=== PATIENT | female | born 1960 | race Caucasian/White ===

== ENCOUNTER 2023-03-05 14:27 | Emergency (ER) | payer OTHER ==
[2023-03-05 14:38] VITALS: TEMP 96
[2023-03-05] MEDS ORDERED: BABY ASPIRIN 81 MG CHEW PO ONE (14:59)
[2023-03-05] MEDS ORDERED: HYDROCODONE-ACETAMIN 10-325 MG PO STA (15:00)
[2023-03-05 15:07] LABS: Absolute Neutrophil Ct (ANC) 8.02 x10^3/uL (1.4-6.9); BASOPHIL % 0.4 % (0.0-0.4); Basophil (Absolute #) 0.06 x10^3/uL (0-0.4); Eosinophil % 1.3 % (0.00-5.0); Eosinophil (Absolute #) 0.18 x10^3/uL (0-0.5); Hematocrit 46.9 % (35-47); Hemoglobin 15.6 g/dL (12.0-16.0); IMMATURE GRAN # 0.07 x10^3u/L (0.00-0.03); IMMATURE GRAN % 0.5 % (0.00-0.4); Lymphocytes % 34.2 % (24.0-44.0); Mean Cell Volume 93.1 fL (78-100); Mean Corpuscular Hgb Concent. 33.3 g/dL (32-36); Mean Platelet Volume 9.4 fL (7.5-11.0); Monocyte (Absolute #) 0.91 x10^3/uL (0.0-1.3); Monocytes % 6.5 % (0.0-12.0); Neutrophil % 57.1 % (36.0-66.0); Platelet Count 348 x10^3/uL (150-450); Red Blood Count 5.04 x10^6/uL (4.1-5.4); Red Cell Distribution Width 12.3 % (11.5-14.0)
[2023-03-05] MEDS ORDERED: BABY ASPIRIN 81 MG CHEW ONE (15:08)
[2023-03-05] MEDS ORDERED: HYDROCODONE-ACETAMIN 10-325 MG ONE (15:08)
[2023-03-05 15:33] LABS: ALBUMIN 4.6 g/dL (3.5-5.0); ANION GAP 14.4 MEQ/L (5-15); BILIRUBIN,TOTAL 0.6 mg/dL (0.2-1.3); Calcium 10.4 mg/dL (8.4-10.2); Creatinine 1 0.63 mg/dL (0.52-1.04); EST GLOMERULAR FILTRATION RATE 100.2 ML/MIN; Potassium 3.5 mmol/L (3.5-5.1)
--- NOTE | 2023-03-05 17:27 | ERPHSYRPT ---
- History of Present Illness Time Seen by Provider: 03/05/23 14:36 Historian: patient Exam Limitations: no limitations Patient Subjective Stated Complaint: "I've had chest pain for a week and it's worse. It's right in the middle of my chest and shoots straight into my back". Triage Nursing Assessment: Pt presents to ER with complaints of midsternal chest pains x 1 week that radiates straight through into her back. Pt rates pain 8/10 scale. States pain is a constant ache. Complains of intermittent nausea. Denies vomiting or diarrhea. Denies shortness of breath, lung sounds are clear and equal throughout. Skin is pink, warm, and dry. Able to speak in full sentences. Pt is alert and oriented x 3. Physician History: 62 years old female with a history of diabetes mellitus, tobacco abuse presented in the ER with 1 week history of chest pain. Patient reports she has a history of chronic upper mid back pain and was evaluated outpatient a week ago at urgent care for same symptoms and then at primary care with a EKG showing some changes with negative blood work including troponins 3 days ago. Patient reports some radiation of pain from back to the anterior chest now without any difficulty breathing or palpitations. Patient reports constant pain, relief with lying flat and more with sitting up and moving in certain directions. Denies any history of coronary artery disease. Patient decided to be evaluated in the ER as her pain was getting worse. She has not taken anything for pain at home. Allergies/Adverse Reactions: acetaminophen [From Darvocet-N] Allergy (Intermediate, Verified 03/05/23 14:38) sick propoxyphene napsylate [From Darvocet-N] Allergy (Intermediate, Verified 03/05/23 14:38) sick morphine Allergy (Mild, Verified 03/05/23 14:38) oxycodone HCl [From Percocet] Allergy (Verified 03/05/23 14:38) Home Medications: Aspirin [[place]] 81 mg PO DAILY 03/05/23 [History] Clopidogrel Bisulfate [Plavix] 75 mg PO DAILY 03/05/23 [History] Metformin HCl 500 mg [Glucophage 500 MG] 500 mg PO DAILY 03/05/23 [History] Semaglutide [Ozempic] 0.25 mg SQ WEEKLY 11/24/23 [History] Hx Tetanus, Diphtheria Vaccination/Date Given: No Hx Influenza Vaccination/Date Given: No Hx Pneumococcal Vaccination/Date Given: No Immunizations Up to Date: No Travel Risk - International Travel Have you traveled outside of the country in past 3 weeks: No - Coronavirus Screening Are you exhibiting any of the following symptoms?: No Close contact with a COVID-19 positive Pt in past 14-21 Days: No - Vaccine Status Have you recieved a Covid-19 vaccination: Yes 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[employer] - Vaccination Dates Date of 2cond Vaccination (if applicable): 2020 - Review of Systems Constitutional: No Symptoms Eyes: No Symptoms Ears, Nose, & Throat: No Symptoms Respiratory: No Symptoms Cardiac: Chest Pain Abdominal/Gastrointestinal: Nausea Genitourinary Symptoms: No Symptoms Musculoskeletal: Back Pain Skin: No Symptoms Neurological: No Symptoms Psychological: No Symptoms Hematologic/Lymphatic: No Symptoms Immunological/Allergic: No Symptoms - Past Medical History Pertinent Past Medical History: Yes Neurological History: No Pertinent History ENT History: No Pertinent History Cardiac History: High Cholesterol Respiratory History: Asthma, Bronchitis Endocrine Medical History: No Pertinent History Musculoskeletal History: Arthritis GI Medical History: Hemorrhoids History: No Pertinent History Psycho-Social History: Anxiety Female Reproductive Disorders: No Pertinent History - Past Surgical History Past Surgical History: Yes Neuro Surgical History: No Pertinent History Cardiac: No Pertinent History Respiratory: No Pertinent History Gastrointestinal: No Pertinent History Genitourinary: No Pertinent History Musculoskeletal: Orthopedic Surgery Female Surgical History: No Pertinent History Other Surgical History: t&a,rt knee joint replaced - Social History Smoking Status: Current every day smoker How long have you smoked: 30 Exposure to second hand smoke: No Drug Use: none Patient Lives Alone: No - Nursing Vital Signs Nursing Vital Signs: Initial Vital Signs Temperature 96 F 03/05/23 14:28 Pulse Rate 110 H 03/05/23 14:28 Respiratory Rate 18 03/05/23 14:28 Blood Pressure 138/102 03/05/23 14:28 O2 Sat by Pulse Oximetry 98 03/05/23 14:28 Pain Scale Pain Intensity 2 - Physical Exam General Appearance: no apparent distress, alert, anxiety Eye Exam: PERRL/EOMI Ears, Nose, Throat Exam: normal ENT inspection, TMs normal, pharynx normal, moist mucous membranes Neck Exam: normal inspection, non-tender, supple, full range of motion Respiratory Exam: normal breath sounds, lungs clear Cardiovascular Exam: normal heart sounds, tachycardia Gastrointestinal/Abdomen Exam: soft, normal bowel sounds, No tenderness Back Exam: normal inspection, normal range of motion, point tenderness (Upper back thoracic paraspinal area tenderness) Extremity Exam: normal inspection, normal range of motion, pelvis stable Neurologic Exam: alert, oriented x 3, cooperative, 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 as tested Skin Exam: normal color SpO2 Interpretation: normal SpO2: 96 O2 Delivery: Room Air Ordered Tests: Active Orders 24 hr Category Date Time Status Oven Technician STAT Care 03/05/23 14:59 Active EKG-ER Only STAT Care 03/05/23 14:59 Active IV Insertion STAT Care 03/05/23 14:59 Active CHEST WITH CONTRAST [CT] Stat Exams 03/05/23 14:59 Taken CBC W DIFF Stat Lab 03/05/23 14:59 Completed CK-Creatinine Phosphokinase Stat Lab 03/05/23 15:00 Completed CMP Stat Lab 03/05/23 15:00 Completed NT PRO BNPII Stat Lab 03/05/23 15:00 Completed TROPONIN Q4H Lab 03/05/23 15:00 Completed TROPONIN Q4H Lab 03/05/23 19:00 Ordered TROPONIN Q4H Lab 03/05/23 23:00 Ordered Medication Summary Discontinued Medications Generic Name Dose Route Start Last Admin Trade Name Ana Rosa PRMikel Reason Stop Dose Admin Hydrocodone Bitart/Acetaminophen 1 tablet 03/05/23 15:00 03/05/23 15:12 Hydrocodone/Acetamin 10-325 Mg Tablet PO 03/05/23 15:01 1 tablet ONCE STA Administration Hydrocodone Bitart/Acetaminophen Confirm 03/05/23 15:08 Hydrocodone/Acetamin 10-325 Mg Tablet Administered 03/05/23 15:09 Dose 1 tablet .ROUTE .STK-MED ONE Aspirin 324 mg 03/05/23 14:59 03/05/23 15:11 Aspirin 81 Mg Tab.Chew PO 03/05/23 15:00 243 mg STAT ONE Administration Aspirin Confirm 03/05/23 15:08 Aspirin 81 Mg Tab.Chew Administered 03/05/23 15:09 Dose 243 mg .ROUTE .STK-MED ONE Lab/Rad Data: Laboratory Result Diagrams 03/05/23 14:59 03/05/23 15:00 Laboratory Results 11/24/23 11/24/23 11/24/23 Range/Units 15:00 15:00 14:59 WBC 14.0 H (4.0-10.5) x10^3/uL RBC 5.04 (4.1-5.4) x10^6/uL Hgb 15.6 (12.0-16.0) g/dL Hct 46.9 (35-47) % MCV 93.1 (78-100) fL MCH 31.0 (26-32) pg MCHC 33.3 (32-36) g/dL RDW 12.3 (11.5-14.0) % Plt Count 348 (150-450) x10^3/uL MPV 9.4 (7.5-11.0) fL Gran % 57.1 (36.0-66.0) % Immature Gran % (Auto) 0.5 H (0.00-0.4) % Nucleat RBC Rel Count 0.0 (0.00-0.1) % Eos # (Auto) 0.18 (0-0.5) x10^3/uL Immature Gran # (Auto) 0.07 H (0.00-0.03) x10^3u/L Absolute Lymphs (auto) 4.80 H (1.0-4.6) x10^3/uL Absolute Monos (auto) 0.91 (0.0-1.3) x10^3/uL Absolute Nucleated RBC 0.00 (0.00-0.01) x10^3u/L Lymphocytes % 34.2 (24.0-44.0) % Monocytes % 6.5 (0.0-12.0) % Eosinophils % 1.3 (0.00-5.0) % Basophils % 0.4 (0.0-0.4) % Absolute Granulocytes 8.02 H (1.4-6.9) x10^3/uL Basophils # 0.06 (0-0.4) x10^3/uL Sodium 141 (137-145) mmol/L Potassium 3.5 (3.5-5.1) mmol/L Chloride 105 (98-107) mmol/L Carbon Dioxide 26 (22-30) mmol/L Anion Gap 14.4 (5-15) MEQ/L BUN 14 (7-17) mg/dL Creatinine 0.63 (0.52-1.04) mg/dL Estimated GFR 100.2 ML/MIN Glucose 193 H (74-106) mg/dL Calcium 10.4 H (8.4-10.2) mg/dL Total Bilirubin 0.60 (0.2-1.3) mg/dL AST 18 (14-36) U/L ALT 17 (0-35) U/L Alkaline Phosphatase 104 (38-126) U/L Creatine Kinase 30 (30-135) U/L Troponin I < 0.012 (0.000-0.034) ng/mL NT-Pro-B Natriuret Pep 153 (<300) pg/mL Serum Total Protein 8.0 (6.3-8.2) g/dL Albumin 4.6 (3.5-5.0) g/dL - Progress Progress: improved Air Movement: good Progress Note: 03/05/23 18:28 62 years old female with a history of upper back pain is evaluated in the ER with chief complaint of chest pain with some radiation of back pain to the anterior chest without difficulty breathing. Patient was mildly tachycardic on presentation. EKG did not show any acute ST elevations. She is given aspirin and [place] for symptomatic relief, on reevaluation her pain is completely resolved. She has normal white count, fairly unremarkable chemistries except for elevated glucose of 190s. I have obtained CTA chest which is negative for PE or any other acute findings per preliminary report, full read is pending. Patient pain is reproducible with movements in a certain direction and is better with lying flat. I think patient's pain is more of a back pain with some radiation to the chest wall. With her troponins negative x 2 today and also -3 days ago and with constant pain, less likely cardiac in origin. Her heart rate improved and 80s. Blood pressure remained stable. I have discussed with patient about observation in the hospital versus going home and she wants to go home and I think is reasonable as she is scheduled for outpatient stress test in 3 days and being holidays we want to be able to get stress test done even if we admit this patient. Patient is requesting pain medication and I we will give her few tramadol's to take only as needed. Discussed signs symptoms of worsening needing return to ER which she seems understanding. Also give referral for cardiology. Blood Culture(s) Obtained: No Antibiotics given: No Counseled pt/family regarding: lab results, diagnosis, need for follow-up, rad results, smoking cessation Medical Desision Making - Diagnostic Testing Diagnostic test were ordered, analyzed, and reviewed by me: Yes Radiological Interpretation: Reviewed by me, Teleradiologist Report - Risk of complications The pt has a mod risk of morbidity or mortality based on: Need for prescription drug management - Departure Departure Disposition: Home Clinical Impression: Atypical chest pain, Upper back strain Condition: Stable Critical Care Time: No Referrals: SHAN SCHMID NP [Primary Care Provider] - Follow Up with PCP/3 days RUSLAN CHARLES [CONSULTING PHYSICIAN] - Follow up/PCP as directed (Call for appointment for reevaluation in 1 to 2 days.) Instructions: Angina (DC) Additional Instructions: Take Tylenol/tramadol as needed for pain. Follow-up with primary care and cardiology for reevaluation. Keep appointment for stress test in 3 days. Return to ER for intractable pain, difficulty breathing, palpitations etc. Prescriptions: Tramadol HCl 50 mg [Ultram 50 mg] 50 mg PO Q8HPRN PRN 3 Days #9 tablet PRN Reason: Pain
[2023-03-05 18:09] VITALS: BP 143/95; PULSE 90; RESP 17; O2SAT 95
--- NOTE | 2023-03-05 20:25 | XRAY ---
Indication: Chest pain 1 week. Pulmonary embolus. Multiple contiguous axial images obtained through the chest using 80 cc of Isovue-370 contrast and PE protocol. Comparison: None Good opacification of the pulmonary arteries to include the lobar and segmental branches. No pulmonary embolus. Heart not enlarged. Aorta is normal in course and caliber. No pathologic mediastinal/hilar lymphadenopathy. Lungs demonstrates minimal bilateral dependent atelectasis. No suspicious pulmonary mass/nodule, infiltrate, or effusion. Bony thorax intact with mild/moderate degenerative changes throughout the spine. Limited upper abdomen including adrenal glands are unremarkable. Impression: 1. Negative pulmonary embolus. No acute cardiopulmonary abnormalities. 2. Incidental multilevel degenerative spondylosis.
== END 2023-03-05 18:24 | disposition home or self-care (01) ==
LOC: ED 14:27
DX: R07.89 Other chest pain (principal); S29.012A Strain of muscle and tendon of back wall of thorax, initial encounter; E11.9 Type 2 diabetes mellitus without complications; E78.5 Hyperlipidemia, unspecified; Z79.891 Long term (current) use of opiate analgesic; Z79.02 Long term (current) use of antithrombotics/antiplatelets; Z79.84 Long term (current) use of oral hypoglycemic drugs; Z79.85 Long-term (current) use of injectable non-insulin antidiabetic drugs; Z72.0 Tobacco use
CPT/HCPCS: 36000; 36415; 71260; 80053; 82550; 83880; 84484; 85025; 93005; 93041; 99284; A9270-GY

== ENCOUNTER 2023-03-27 13:14 | Observation (INO) | payer OTHER ==
[2023-03-27 13:34] LABS: Absolute Neutrophil Ct (ANC) 7.16 x10^3/uL (1.4-6.9); BASOPHIL % 0.4 % (0.0-0.4); Basophil (Absolute #) 0.05 x10^3/uL (0-0.4); Eosinophil % 1.5 % (0.00-5.0); Eosinophil (Absolute #) 0.19 x10^3/uL (0-0.5); Hemoglobin 14.1 g/dL (12.0-16.0); IMMATURE GRAN # 0.06 x10^3u/L (0.00-0.03); IMMATURE GRAN % 0.5 % (0.00-0.4); Lymphocyte (Absolute #) 4.29 x10^3/uL (1.0-4.6); Lymphocytes % 34.4 % (24.0-44.0); Mean Cell Volume 93.3 fL (78-100); Mean Corpuscular Hemoglobin 30.6 pg (26-32); Mean Corpuscular Hgb Concent. 32.8 g/dL (32-36); Mean Platelet Volume 9.2 fL (7.5-11.0); Monocyte (Absolute #) 0.72 x10^3/uL (0.0-1.3); Monocytes % 5.8 % (0.0-12.0); Neutrophil % 57.4 % (36.0-66.0); Platelet Count 314 x10^3/uL (150-450); Red Blood Count 4.61 x10^6/uL (4.1-5.4); Red Cell Distribution Width 12.3 % (11.5-14.0); White Blood Count 12.5 x10^3/uL (4.0-10.5)
[2023-03-27 13:56] LABS: ALBUMIN 4.2 g/dL (3.5-5.0); ANION GAP 11.9 MEQ/L (5-15); BILIRUBIN,TOTAL 0.5 mg/dL (0.2-1.3); Calcium 9.9 mg/dL (8.4-10.2); Creatinine 1 0.5 mg/dL (0.52-1.04); Potassium 3.8 mmol/L (3.5-5.1); Total Protein 7.4 g/dL (6.3-8.2)
--- NOTE | 2023-03-27 14:37 | ERPHSYRPT ---
- History of Present Illness Time Seen by Provider: 03/27/23 13:25 Historian: patient Exam Limitations: no limitations Patient Subjective Stated Complaint: Chest pain Triage Nursing Assessment: Patient ambulated back to ED and transferred self to bed. Patient A+O X 3. Patient's skin pink, warm and dry. Patient states she was sitting up in her recliner about 2.5 hours prior to coming into ED and started having chest pain that was dull in her sternal area. Patient took Nitro X 3 prior to coming to ED. Patient currently denies pain or discomfort. Physician History: 62 years old female with history of tobacco abuse, COPD, hypertension, hyperlipidemia, diabetes mellitus presented in the ER with chief complaint of substernal chest pain started almost 2-1/2 hours ago while she was resting on a recliner, moderate to severe sharp nonradiating with associated some dizziness or lightheadedness, checked her blood pressure which was in 200s. Patient has taken 3 nitros before she started to feel relieved and currently has no chest pain. She has recently seen in the ER for similar symptoms, did follow-up with cardiology and had stress test done which is negative per patient and is scheduled for CTA coronaries next week. Denies any increased difficulty breathing than her baseline. No fever or chills reported. Aspirin Treatment Today: 81 mg x 1 Allergies/Adverse Reactions: propoxyphene napsylate [From Darvocet-N] Allergy (Intermediate, Verified 03/27/23 13:17) sick morphine Allergy (Mild, Verified 03/27/23 13:17) oxycodone HCl [From Percocet] Allergy (Verified 03/27/23 13:17) Home Medications: Aspirin [Vazalore] 81 mg PO DAILY 03/05/23 [History] Clopidogrel Bisulfate [Plavix] 75 mg PO DAILY 03/05/23 [History] Metformin HCl 500 mg [Glucophage 500 MG] 500 mg PO DAILY 03/05/23 [History] Semaglutide [Ozempic] 0.25 mg SQ WEEKLY 03/05/23 [History] Evolocumab [Repatha Syringe] 1 ml SQ UD 03/27/23 [History] Metoprolol Succinate 25 mg Xl* [Toprol-Xl 25MG Tablets] 25 mg PO DAILY 03/27/23 [History] Nitroglycerin 0.4 mg (Ed) [Nitrostat 0.4 MG (ED)] 0.4 mg PO UD 03/27/23 [History] Hx Tetanus, Diphtheria Vaccination/Date Given: No Hx Influenza Vaccination/Date Given: No Hx Pneumococcal Vaccination/Date Given: No Immunizations Up to Date: Yes Travel Risk - International Travel Have you traveled outside of the country in past 3 weeks: No - Coronavirus Screening Are you exhibiting any of the following symptoms?: No Close contact with a COVID-19 positive Pt in past 14-21 Days: No - Vaccine Status Have you recieved a Covid-19 vaccination: Yes [facility] [employer]: Moderna - Vaccination Dates Date of 2cond Vaccination (if applicable): 2020 - Review of Systems Constitutional: No Symptoms Eyes: No Symptoms Ears, Nose, & Throat: No Symptoms Respiratory: No Symptoms Cardiac: Chest Pain Abdominal/Gastrointestinal: No Symptoms Genitourinary Symptoms: No Symptoms Musculoskeletal: No Symptoms Skin: No Symptoms Neurological: Dizziness Endocrine: No Symptoms Hematologic/Lymphatic: No Symptoms - Past Medical History Pertinent Past Medical History: Yes Neurological History: No Pertinent History ENT History: No Pertinent History Cardiac History: High Cholesterol Respiratory History: Asthma, Bronchitis Endocrine Medical History: No Pertinent History Musculoskeletal History: Arthritis GI Medical History: Hemorrhoids History: No Pertinent History Psycho-Social History: Anxiety Female Reproductive Disorders: No Pertinent History - Past Surgical History Past Surgical History: Yes Neuro Surgical History: No Pertinent History Cardiac: No Pertinent History Respiratory: No Pertinent History Gastrointestinal: No Pertinent History Genitourinary: No Pertinent History Musculoskeletal: Orthopedic Surgery Female Surgical History: No Pertinent History Other Surgical History: t&a,rt knee joint replaced - Social History Smoking Status: Current every day smoker How long have you smoked: 30 Exposure to second hand smoke: No Drug Use: none Patient Lives Alone: No - Nursing Vital Signs Nursing Vital Signs: Initial Vital Signs Temperature 97.5 F 03/27/23 13:18 Pulse Rate 88 03/27/23 13:18 Respiratory Rate 23 03/27/23 13:18 Blood Pressure 155/76 03/27/23 13:18 O2 Sat by Pulse Oximetry 98 03/27/23 13:18 Pain Scale Pain Intensity 0 - Physical Exam General Appearance: no apparent distress, alert Eye Exam: PERRL/EOMI Ears, Nose, Throat Exam: normal ENT inspection Neck Exam: normal inspection, non-tender, supple, full range of motion Respiratory Exam: normal breath sounds, lungs clear Cardiovascular Exam: regular rate/rhythm, normal heart sounds Gastrointestinal/Abdomen Exam: soft, No tenderness Back Exam: normal inspection Extremity Exam: normal inspection, normal range of motion Neurologic Exam: alert, oriented x 3, cooperative, distribution lineman II-XII nml as tested, normal mood/affect, nml cerebellar function, nml station & gait, sensation nml, No motor deficits Skin Exam: normal color SpO2 Interpretation: normal SpO2: 99 O2 Delivery: Room Air - Course EKG Interpreted by Me: RATE (91), Sinus Rhythm, NORMAL AXIS, NORMAL INTERVALS, Other (Nonspecific T wave changes) Ordered Tests: Active Orders 24 hr Category Date Time Status Bedrest ROUTINE Activity 03/27/23 17:57 Active Up With Assistance ROUTINE Activity 03/27/23 17:57 Active Call Admit Doctor for Orders ON ADMISSION Care 03/27/23 17:57 Active Maintenance Mechanic Telephone STAT Care 03/27/23 13:25 Completed Code Status Order ROUTINE Care 03/27/23 17:57 Active EKG-ER Only STAT Care 03/27/23 13:25 Completed Fall Protocol ROUTINE Care 03/27/23 17:57 Active IV Insertion STAT Care 03/27/23 13:25 Completed POCT Glucose Check ACHS Care 03/27/23 17:[address] in Observation ROUTINE Care 03/27/23 17:57 Active Consistent Carbohydrate Diet 1800 Calorie Diet 03/27/23 Dinner Active CHEST 1 VIEW (PORTABLE) Stat Exams 03/27/23 13:25 Completed CBC W DIFF Stat Lab 03/27/23 13:30 Completed CK-Creatinine Phosphokinase Stat Lab 03/27/23 13:30 Completed CMP Stat Lab 03/27/23 13:30 Completed NT PRO BNPII Stat Lab 03/27/23 13:30 Completed POCT GLUCOSE Stat Lab 03/27/23 17:02 Completed TROPONIN Q4H Lab 03/27/23 13:30 Completed TROPONIN Q4H Lab 03/27/23 16:53 Completed TROPONIN Q4H Lab 03/27/23 21:30 Ordered Pulse Oximetry CONTINUOUS RT 03/27/23 17:57 Completed Respiratory Therapy Consult ONCE RT 03/27/23 17:57 Active Transfer Order Routine Transfer 03/27/23 Completed Medication Summary Generic Name Dose Route Start Last Admin Trade Name Freq PRN Reason Stop Dose Admin Acetaminophen 325 mg 03/27/23 17:52 Acetaminophen 325 Mg Tablet PO 04/26/23 17:51 Q4H PRN PRN PAIN, FEVER, HEADACHE Hydrocodone Bitart/Acetaminophen 1 tab 03/27/23 19:40 03/27/23 19:43 Hydrocodone/Apap 5/325 1 Tab Tablet PO 03/27/23 19:41 1 tab ONCE ONE Administration Clopidogrel Bisulfate 75 mg 03/28/23 10:00 Clopidogrel Bisulfate 75 Mg Tablet PO 04/27/23 09:59 DAILY [facility] Enoxaparin Sodium 40 mg 03/28/23 10:00 Enoxaparin Sodium 40 Mg/0.4 Ml Syringe SQ 04/27/23 09:59 DAILY [facility] [place] Insulin Human Lispro 0 unit 03/27/23 17:52 Insulin Lispro 1 Unit SQ 04/26/23 17:51 UD PRN HYPERGLYCEMIA Metoprolol Tartrate 50 mg 03/27/23 22:00 Metoprolol Tartrate 50 Mg Tablet PO 04/26/23 21:59 BID CORI Nitroglycerin 0.4 mg 03/27/23 18:45 Nitroglycerin 0.4 Mg (Ed) 0.4 Mg Tab.Subl SL 04/26/23 18:44 UD CORI Non-Formulary Medication 1 ml 03/27/23 18:45 Evolocumab [Repatha Syringe] SQ 04/26/23 18:44 UD CORI Non-Formulary Medication 81 mg 03/28/23 10:00 Aspirin [Vazalore] PO 04/27/23 09:59 DAILY [facility] [place] Ondansetron HCl 4 mg 03/27/23 17:52 Ondansetron Hcl 4 Mg/2 Ml Vial IV 04/26/23 17:51 Q6H PRN PRN NAUSEA/VOMITING Pantoprazole Sodium 40 mg 03/27/23 18:45 Pantoprazole 40 Mg Vial IV 04/26/23 18:44 Q24H CORI Tramadol HCl 50 mg 03/27/23 18:35 Tramadol Hcl 50 Mg Tablet PO 04/26/23 18:34 Q8HPRN PRN PAIN Discontinued Medications Generic Name Dose Route Start Last Admin Trade Name Howieq PRN Reason Stop Dose Admin Metoprolol Succinate 25 mg 03/28/23 10:00 Metoprolol Succinate 25 Mg Xl Tab PO 04/27/23 09:59 DAILY [facility] [place] Lab/Rad Data: Laboratory Result Diagrams 03/27/23 13:30 03/27/23 13:30 Laboratory Results 03/27/23 03/27/23 03/27/23 Range/Units 17:02 16:53 16:30 WBC (4.0-10.5) x10^3/uL RBC (4.1-5.4) x10^6/uL Hgb (12.0-16.0) g/dL Hct (35-47) % MCV (78-100) fL MCH (26-32) pg MCHC (32-36) g/dL RDW (11.5-14.0) % Plt Count (150-450) x10^3/uL MPV (7.5-11.0) fL Gran % (36.0-66.0) % Immature Gran % (Auto) (0.00-0.4) % Nucleat RBC Rel Count (0.00-0.1) % Eos # (Auto) (0-0.5) x10^3/uL Immature Gran # (Auto) (0.00-0.03) x10^3u/L Absolute Lymphs (auto) (1.0-4.6) x10^3/uL Absolute Monos (auto) (0.0-1.3) x10^3/uL Absolute Nucleated RBC (0.00-0.01) x10^3u/L Lymphocytes % (24.0-44.0) % Monocytes % (0.0-12.0) % Eosinophils % (0.00-5.0) % Basophils % (0.0-0.4) % Absolute Granulocytes (1.4-6.9) x10^3/uL Basophils # (0-0.4) x10^3/uL Sodium (137-145) mmol/L Potassium (3.5-5.1) mmol/L Chloride (98-107) mmol/L Carbon Dioxide (22-30) mmol/L Anion Gap (5-15) MEQ/L BUN (7-17) mg/dL Creatinine (0.52-1.04) mg/dL Estimated GFR ML/MIN Glucose (74-106) mg/dL POC Glucometer 91 (74 to 106) mg/dL Calcium (8.4-10.2) mg/dL Total Bilirubin (0.2-1.3) mg/dL AST (14-36) U/L ALT (0-35) U/L Alkaline Phosphatase (38-126) U/L Creatine Kinase (30-135) U/L Troponin I < 0.012 (0.000-0.034) ng/mL NT-Pro-B Natriuret Pep (<300) pg/mL Serum Total Protein (6.3-8.2) g/dL Albumin (3.5-5.0) g/dL TSH 3rd Generation 2.260 (0.47-4.68) mIU/L 03/27/23 03/27/23 03/27/23 Range/Units 13:30 13:30 13:30 WBC 12.5 H (4.0-10.5) x10^3/uL RBC 4.61 (4.1-5.4) x10^6/uL Hgb 14.1 (12.0-16.0) g/dL Hct 43.0 (35-47) % MCV 93.3 (78-100) fL MCH 30.6 (26-32) pg MCHC 32.8 (32-36) g/dL RDW 12.3 (11.5-14.0) % Plt Count 314 (150-450) x10^3/uL MPV 9.2 (7.5-11.0) fL Gran % 57.4 (36.0-66.0) % Immature Gran % (Auto) 0.5 H (0.00-0.4) % Nucleat RBC Rel Count 0.0 (0.00-0.1) % Eos # (Auto) 0.19 (0-0.5) x10^3/uL Immature Gran # (Auto) 0.06 H (0.00-0.03) x10^3u/L Absolute Lymphs (auto) 4.29 (1.0-4.6) x10^3/uL Absolute Monos (auto) 0.72 (0.0-1.3) x10^3/uL Absolute Nucleated RBC 0.00 (0.00-0.01) x10^3u/L Lymphocytes % 34.4 (24.0-44.0) % Monocytes % 5.8 (0.0-12.0) % Eosinophils % 1.5 (0.00-5.0) % Basophils % 0.4 (0.0-0.4) % Absolute Granulocytes 7.16 H (1.4-6.9) x10^3/uL Basophils # 0.05 (0-0.4) x10^3/uL Sodium 142 (137-145) mmol/L Potassium 3.8 (3.5-5.1) mmol/L Chloride 106 (98-107) mmol/L Carbon Dioxide 28 (22-30) mmol/L Anion Gap 11.9 (5-15) MEQ/L BUN 12 (7-17) mg/dL Creatinine 0.50 L (0.52-1.04) mg/dL Estimated GFR 106.0 ML/MIN Glucose 215 H (74-106) mg/dL POC Glucometer (74 to 106) mg/dL Calcium 9.9 (8.4-10.2) mg/dL Total Bilirubin 0.50 (0.2-1.3) mg/dL AST 18 (14-36) U/L ALT 14 (0-35) U/L Alkaline Phosphatase 97 (38-126) U/L Creatine Kinase 29 L (30-135) U/L Troponin I < 0.012 (0.000-0.034) ng/mL NT-Pro-B Natriuret Pep 104 (<300) pg/mL Serum Total Protein 7.4 (6.3-8.2) g/dL Albumin 4.2 (3.5-5.0) g/dL TSH 3rd Generation (0.47-4.68) mIU/L - Progress Progress: improved, re-examined Air Movement: good Progress Note: 03/27/23 14:37 62 years old with history of tobacco abuse, diabetes mellitus, hypertension is evaluated in the ER for chest pain started today with elevated blood pressure and improvement in chest pain with 3 nitros. Patient is chest pain-free while in the ER. EKG did not show any acute ischemic changes. Negative initial troponin. Chest x-ray negative for any acute cardiopulmonary findings reviewed by me, official report is pending. Patient has multiple risk factors for CAD, discussed with hospitalist, reviewed history, workup and agreed with observation admission. I have discussed the results of workup with patient and plan of admission which she understands and agrees. Blood Culture(s) Obtained: No Antibiotics given: No Discussed with Dr.: Other (Dr. Franks) Will see patient in: hospital (observation) Counseled pt/family regarding: lab results, diagnosis, rad results, smoking cessation Medical Desision Making - Independent Historian Additional History obtained from: Spouse - Discussion of managment Care discussed with:: hospitalist Reviewed:: Test results Agreed on:: Treatment plan Will see patient: in hospital - Diagnostic Testing Diagnostic test were ordered, analyzed, and reviewed by me: Yes Radiological Interpretation: Interpreted by me, Reviewed by me - Risk of complications The pt has a high risk of morbidity or mortality based on: Decision regarding hospitilization or escalation of hosp level of care - Departure Departure Disposition: Observation Clinical Impression: Chest pain, rule out acute myocardial infarction Condition: Stable Critical Care Time: No
--- NOTE | 2023-03-27 17:48 | PCM.HP ---
History of Present Illness - Chief Complaint Chief Complaint: Chest Pain Date: 03/27/23 History of Present Illness: is a 62 year old with a pmhx of COPD, HTN, HLD, DM, s/p stent to the RLE, and current every day smoker who presented to ED with complaints of substernal chest pain with assoicated dizziness that she reports may have radiated to her left neck and back but she is unsure. Onset of her chest pain was 11 a.m. this morning. She describes the pain as mild, constant, and dull in characteristic rating it 4/10 on a numerical pain scale. Aggravating factors include movement. She did get relief from Nitro, but only after taking it three times. She denies CP since arriving to the hospital. She follows with Dr. Aburto (cardiolgy) and had a recent stress test which she reports was negative. She is due to follow this Wednesday with Dr. Aburto and a coronary calcium scan later next week. She also reports a cough with clear production and nasal congestion for the past week. In ED vitals unremarkable. CXR negative for acute cardiopulmonary process. EKG with NS, no ST elevations/deviations. Lab findings remarkable for leukocytosis with WBC at 12.5. Troponins neg x2. BNP WNL. - Review of Systems Constitutional: No Symptoms Eyes: No Symptoms Ears, Nose, & Throat: Nose Congestion, Sinus Drainage Respiratory: Cough, Short Of Breath Cardiac: No Symptoms Abdominal/Gastrointestinal: No Symptoms Genitourinary Symptoms: No Symptoms Musculoskeletal: Back Pain Skin: No Symptoms Neurological: No Symptoms Psychological: No Symptoms Endocrine: No Symptoms Medications & Allergies Home Medications: Home Medication List Aspirin [Vazalore] 81 mg PO DAILY 03/05/23 [History Confirmed 03/27/23] Clopidogrel Bisulfate [Plavix] 75 mg PO DAILY 03/05/23 [History Confirmed 03/27/23] Metformin HCl 500 mg [Glucophage 500 MG] 500 mg PO DAILY 03/05/23 [History Confirmed 03/27/23] Semaglutide [Ozempic] 0.25 mg SQ WEEKLY 03/05/23 [History Confirmed 03/27/23] Tramadol HCl 50 mg [Ultram 50 mg] 50 mg PO Q8HPRN PRN 3 Days #9 tablet 03/05/23 [Rx Confirmed 03/27/23] Evolocumab [Repatha Syringe] 1 ml SQ UD 03/27/23 [History Confirmed 03/27/23] Metoprolol Succinate 25 mg Xl* [Toprol-Xl 25MG Tablets] 25 mg PO DAILY 03/27/23 [History Confirmed 03/27/23] Nitroglycerin 0.4 mg (Ed) [Nitrostat 0.4 MG (ED)] 0.4 mg PO UD 03/27/23 [History Confirmed 03/27/23] Allergies/Adverse Reactions: Allergies Allergy/AdvReac Type Severity Reaction Status Date / Time propoxyphene napsylate Allergy Intermediate sick Verified 03/27/23 13:17 [From Darvocet-N] morphine Allergy Mild Verified 03/27/23 13:17 oxycodone HCl [From Percocet] Allergy Verified 03/27/23 13:17 - Past Medical History Past Medical History: Yes Neurological History: No Pertinent History ENT History: No Pertinent History Cardiac History: High Cholesterol Respiratory History: Asthma, Bronchitis Endocrine Medical History: No Pertinent History Musculoskelatal History: Arthritis GI Medical History: Hemorrhoids History: No Pertinent History Pyscho-Social History: Anxiety Reproductive Disorders: No Pertinent History - Past Surgical History Past Surgical History: Yes Neuro Surgical History: No Pertinent History Cardiac History: No Pertinent History Respiratory Surgery: No Pertinent History GI Surgical History: No Pertinent History Genitourinary Surgical Hx: No Pertinent History Musculskeletal Surgical Hx: Orthopedic Surgery Female Surgical History: No Pertinent History Other Surgical History: t&a,rt knee joint replaced - Social History Smoking Status: Current every day smoker How long have you smoked: 30 Exposure to second hand smoke: No Alcohol: None Drug Use: none - Physical Exam Vital Signs: Vital Signs - 24 hr Temp Pulse Resp BP BP Pulse Ox 03/27/23 14:39 99 03/27/23 14:00 84 20 157/91 99 03/27/23 13:18 97.5 F 88 23 155/76 98 General Appearance: no apparent distress Neurologic Exam: alert, oriented x 3, cooperative Eye Exam: PERRL/EOMI Neck Exam: normal inspection Respiratory Exam: normal breath sounds, lungs clear Cardiovascular Exam: regular rate/rhythm, normal heart sounds Pelvic Exam: not done Rectal Exam: deferred Back Exam: normal inspection Extremity Exam: normal inspection Skin Exam: normal color Results - Labs Lab/Micro Results: Lab Results-Last 24 Hours 03/27/23 03/27/23 03/27/23 Range/Units 13:30 13:30 13:30 WBC 12.5 H (4.0-10.5) x10^3/uL RBC 4.61 (4.1-5.4) x10^6/uL Hgb 14.1 (12.0-16.0) g/dL Hct 43.0 (35-47) % MCV 93.3 (78-100) fL MCH 30.6 (26-32) pg MCHC 32.8 (32-36) g/dL RDW 12.3 (11.5-14.0) % Plt Count 314 (150-450) x10^3/uL MPV 9.2 (7.5-11.0) fL Gran % 57.4 (36.0-66.0) % Immature Gran % (Auto) 0.5 H (0.00-0.4) % Nucleat RBC Rel Count 0.0 (0.00-0.1) % Eos # (Auto) 0.19 (0-0.5) x10^3/uL Immature Gran # (Auto) 0.06 H (0.00-0.03) x10^3u/L Absolute Lymphs (auto) 4.29 (1.0-4.6) x10^3/uL Absolute Monos (auto) 0.72 (0.0-1.3) x10^3/uL Absolute Nucleated RBC 0.00 (0.00-0.01) x10^3u/L Lymphocytes % 34.4 (24.0-44.0) % Monocytes % 5.8 (0.0-12.0) % Eosinophils % 1.5 (0.00-5.0) % Basophils % 0.4 (0.0-0.4) % Absolute Granulocytes 7.16 H (1.4-6.9) x10^3/uL Basophils # 0.05 (0-0.4) x10^3/uL Sodium 142 (137-145) mmol/L Potassium 3.8 (3.5-5.1) mmol/L Chloride 106 (98-107) mmol/L Carbon Dioxide 28 (22-30) mmol/L Anion Gap 11.9 (5-15) MEQ/L BUN 12 (7-17) mg/dL Creatinine 0.50 L (0.52-1.04) mg/dL Estimated GFR 106.0 ML/MIN Glucose 215 H (74-106) mg/dL POC Glucometer (74 to 106) mg/dL Calcium 9.9 (8.4-10.2) mg/dL Total Bilirubin 0.50 (0.2-1.3) mg/dL AST 18 (14-36) U/L ALT 14 (0-35) U/L Alkaline Phosphatase 97 (38-126) U/L Creatine Kinase 29 L (30-135) U/L Troponin I < 0.012 (0.000-0.034) ng/mL NT-Pro-B Natriuret Pep 104 (<300) pg/mL Serum Total Protein 7.4 (6.3-8.2) g/dL Albumin 4.2 (3.5-5.0) g/dL 03/27/23 03/27/23 Range/Units 16:53 17:02 WBC (4.0-10.5) x10^3/uL RBC (4.1-5.4) x10^6/uL Hgb (12.0-16.0) g/dL Hct (35-47) % MCV (78-100) fL MCH (26-32) pg MCHC (32-36) g/dL RDW (11.5-14.0) % Plt Count (150-450) x10^3/uL MPV (7.5-11.0) fL Gran % (36.0-66.0) % Immature Gran % (Auto) (0.00-0.4) % Nucleat RBC Rel Count (0.00-0.1) % Eos # (Auto) (0-0.5) x10^3/uL Immature Gran # (Auto) (0.00-0.03) x10^3u/L Absolute Lymphs (auto) (1.0-4.6) x10^3/uL Absolute Monos (auto) (0.0-1.3) x10^3/uL Absolute Nucleated RBC (0.00-0.01) x10^3u/L Lymphocytes % (24.0-44.0) % Monocytes % (0.0-12.0) % Eosinophils % (0.00-5.0) % Basophils % (0.0-0.4) % Absolute Granulocytes (1.4-6.9) x10^3/uL Basophils # (0-0.4) x10^3/uL Sodium (137-145) mmol/L Potassium (3.5-5.1) mmol/L Chloride (98-107) mmol/L Carbon Dioxide (22-30) mmol/L Anion Gap (5-15) MEQ/L BUN (7-17) mg/dL Creatinine (0.52-1.04) mg/dL Estimated GFR ML/MIN Glucose (74-106) mg/dL POC Glucometer 91 (74 to 106) mg/dL Calcium (8.4-10.2) mg/dL Total Bilirubin (0.2-1.3) mg/dL AST (14-36) U/L ALT (0-35) U/L Alkaline Phosphatase (38-126) U/L Creatine Kinase (30-135) U/L Troponin I < 0.012 (0.000-0.034) ng/mL NT-Pro-B Natriuret Pep (<300) pg/mL Serum Total Protein (6.3-8.2) g/dL Albumin (3.5-5.0) g/dL - Radiology Impressions Radiology Exams & Impressions: Radiology Procedures Category Date Time Status CHEST 1 VIEW (PORTABLE) Stat Exams 03/27/23 13:25 Taken Assessment/Plan (1) Chest pain, rule out acute myocardial infarction Current Visit: Yes Status: Acute Assessment & Plan: -Carb consistent/Heart Healthy Diet -Patient has appt with 03/30/23 CXR demonstrates no acute cardiopulmonary disease start ASA and NTG sublingual PRN serial troponin and ECG repeat in the morning Echo in am or when available CBC, CMP, TSH, PT/INR, Mg, UDS, UA, DDimer, Phos, lipid panel, HgbA1c in am continue appropriate baseline home medications -Consider CTA if ddimer is positive -Nitro/Patient states she is unable to tolerate narcotics DVT prophylaxis-Lovenox 40 mg SQ daily -Continue metoprolol Code(s): R07.9 - CHEST PAIN, UNSPECIFIED (2) Leukocytosis Current Visit: Yes Status: Acute Assessment & Plan: -WBC increased, this could be reactive vs infectious process. Will check UA, viral panel Code(s): D72.829 - ELEVATED WHITE BLOOD CELL COUNT, UNSPECIFIED (3) Hypertension Current Visit: Yes Status: Acute Assessment & Plan: -Stable, continue home medications, add hydralazine prn Code(s): I10 - ESSENTIAL (PRIMARY) HYPERTENSION (4) Diabetes mellitus Current Visit: Yes Status: Acute Assessment & Plan: -ADA diet -A1c - most recent a1c 5.85 10/14/22 - will repeat -SSI low dose VTE: Lovenox PPI: protonix Dispo 1-2 days Next of Kin: Fredy Faustin spouse [phone] Code(s): E11.9 - TYPE 2 DIABETES MELLITUS WITHOUT COMPLICATIONS (5) COPD (chronic obstructive pulmonary disease) Current Visit: Yes Status: Acute Assessment & Plan: -Does not appear to be in exacerbation, on her baseline RA -RT consult -Advised smoking cessation -Supplemental oxygen for goal spo2 > 92%
[2023-03-27] MEDS ORDERED: Zofran 4 MG/2 ML VIAL IV PRN (17:52)
[2023-03-27] MEDS ORDERED: TYLENOL 325 MG PO PRN (17:52)
[2023-03-27] MEDS ORDERED: HUMALOG SQ PRN (17:52)
[2023-03-27] MEDS ORDERED: ULTRAM 50 MG PO PRN (18:35)
[2023-03-27] MEDS ORDERED: NON-FORMULARY ITEM (Evolocumab [Repatha Syringe] 140 MG/ML Syringe) SQ SCH (18:45)
[2023-03-27] MEDS ORDERED: Nitrostat 0.4 MG (ED) SL SCH (18:45)
[2023-03-27] MEDS ORDERED: PROTONIX 40 MG IV IV SCH (18:45)
[2023-03-27] MEDS ORDERED: VENTOLIN COMMON CANISTER IH PRN (19:00)
[2023-03-27] MEDS ORDERED: NORCO 5/325 MG PO ONE (19:40)
[2023-03-27 19:46] LABS: INFLUENZA A NEGATIVE (NEGATIVE); INFLUENZA B NEGATIVE (NEGATIVE); RESPIRATORY SYNCTIAL VIRUS NEGATIVE (NEGATIVE); SARS-CoV-2 Xpert Express NEGATIVE (NEGATIVE)
--- NOTE | 2023-03-27 19:58 | XRAY ---
Indication: Chest pain. Comparison: None Portable chest underinflated crowding both lung bases. Remaining heart and upper lungs unremarkable. Bony thorax intact with osteopenia and mild degenerative changes. Impression: Nonacute underinflated chest with chronic bony findings.
[2023-03-27 20:00] LABS: Appearance Clear (Clear); Bacteria Rare /HPF (None Seen); Bilirubin Negative (Negative); Blood Negative (Negative); Epithelial Cells Few /HPF (None Seen); Glucose, Urine Negative (Negative); Hyaline Casts NONE SEEN /LPF (0-2); Ketones Negative (Negative); Leukocyte Esterase Trace (Negative); Nitrite Negative (Negative); Protein,Urine Dip Negative (Negative); RBC 0-2 /HPF (0-5); Specific Gravity 1.015 (1.005-1.030); Urobilinogen 0.2 mg/dL (0.2)
[2023-03-27 20:04] LABS: ADD URINE CULTURE? NO (NO)
[2023-03-27 20:21] LABS: Amphetamine,Urine NEGATIVE (NEGATIVE); Barbiturate,Urine NEGATIVE (NEGATIVE); Benzodiazepine,Urine NEGATIVE (NEGATIVE); Cocaine,Urine NEGATIVE (NEGATIVE); Methadone,Urine NEGATIVE (NEGATIVE); Opiate,Urine NEGATIVE (NEGATIVE); PCP,Urine NEGATIVE (NEGATIVE); THC,Urine NEGATIVE (NEGATIVE)
[2023-03-27 21:05] LABS: PHOSPHOROUS 3.8 mg/dL (2.5-4.5)
[2023-03-27 21:07] LABS: D-DIMER QUANTITATIVE 0.36 mg/L (0.0-0.50); INR 1.1 (0.8-3.0); PROTIME 11.9 SECONDS (9.4-12.5)
[2023-03-27] MEDS: Lopressor 50 MG PO SCH ×2 (21:10→21:12)
--- NOTE | 2023-03-28 05:06 | PCM.DS ---
Discharge Summary Date of Admission: 03/27/23 17:43 Date of Discharge: 03/28/23 Admitting Physician: THOMAS DUGAN MD Primary Care Provider: REX CAR Allergies Allergies propoxyphene napsylate [From Darvocet-N] Allergy (Intermediate, Verified 03/27/23 13:17) sick morphine Allergy (Mild, Verified 03/27/23 13:17) oxycodone HCl [From Percocet] Allergy (Verified 03/27/23 13:17) Hospital Summary - Hospital Course Hospital Course: is a 62 year old with a pmhx of COPD, HTN, HLD, DM, s/p stent to the RLE, and current every day smoker who presented to ED with complaints of substernal chest pain with assoicated dizziness that she reports may have radiated to her left neck and back but she is unsure. Onset of her chest pain was 11 a.m. this morning. She describes the pain as mild, constant, and dull in characteristic rating it 4/10 on a numerical pain scale. Aggravating factors include movement. She did get relief from Nitro, but only after taking it three times. She denies CP since arriving to the hospital. She follows with Dr. Aburto (cardiolgy) and had a recent stress test which she reports was negative. She is due to follow this Wednesday with Dr. Aburto and a coronary calcium scan later next week. She also reports a cough with clear production and nasal congestion for the past week. In ED vitals unremarkable. CXR negative for acute cardiopulmonary process. EKG with NS, no ST elevations/deviations. Lab findings remarkable for leukocytosis with WBC at 12.5. Troponins neg x2. BNP WNL. Negativ e UDS. Negative respiratory viral panel. Repeat EKG with no acute changes ST elevations/deviations. Repeat trops WNL. WBC near normal limits, no signs of infectious etiology. Patient advised to keep her appt with Dr. Aburto this coming to continue cardiac workup. Also advised follow up with PCP. Discharge Note New Diagnosis: Chest pain New Medications:Protonix Follow Up: PCP/Cardiology Latest Assessment & Plan (1) Chest pain, rule out acute myocardial infarction Current Visit: Yes Status: Acute Assessment & Plan: -Carb consistent/Heart Healthy Diet -Patient has appt with 03/30/23 CXR demonstrates no acute cardiopulmonary disease start ASA and NTG sublingual PRN serial troponin and ECG repeat in the morning Echo in am or when available CBC, CMP, TSH, PT/INR, Mg, UDS, UA, DDimer, Phos, lipid panel, HgbA1c in am continue appropriate baseline home medications -Consider CTA if ddimer is positive -Nitro/Patient states she is unable to tolerate narcotics DVT prophylaxis-Lovenox 40 mg SQ daily -Continue metoprolol Code(s): R07.9 - CHEST PAIN, UNSPECIFIED (2) Leukocytosis Current Visit: Yes Status: Acute Assessment & Plan: -WBC increased, this could be reactive vs infectious process. Will check UA, viral panel Code(s): D72.829 - ELEVATED WHITE BLOOD CELL COUNT, UNSPECIFIED (3) Hypertension Current Visit: Yes Status: Acute Assessment & Plan: -Stable, continue home medications, add hydralazine prn Code(s): I10 - ESSENTIAL (PRIMARY) HYPERTENSION (4) Diabetes mellitus Current Visit: Yes Status: Acute Assessment & Plan: -ADA diet -A1c - most recent a1c 5.85 10/14/22 - will repeat -SSI low dose VTE: Lovenox PPI: protonix Dispo 1-2 days Next of Kin: Fredy Faustin spouse [phone] I spent 35 minutes [id number] with the patient on the day of discharge performing discharge exam, discussing hospital stay and discharge instructions with patient and caregivers, preparation of discharge records, prescriptions & referral forms and addressing any questions/concerns the patient had as documented above. - Vitals & Intake/Output Vital Signs: Vital Signs Temperature 97.1 F 03/28/23 04:36 Pulse Rate 88 03/28/23 04:36 Respiratory Rate 18 03/28/23 04:36 Blood Pressure 126/88 03/28/23 04:36 O2 Sat by Pulse Oximetry 94 L 03/28/23 04:36 Intake & Output: Intake & Output 03/25/23 03/26/23 03/27/23 03/28/23 11:59 11:59 11:59 11:59 Intake Total 1760 Output Total 850 Balance 910 Weight 89.2 kg - Lab Result Diagrams: 03/28/23 05:32 03/28/23 05:32 Lab Results-Last 24 Hrs: Lab Results-Last 24 Hours 03/27/23 03/27/23 03/27/23 Range/Units 13:30 13:30 13:30 WBC 12.5 H (4.0-10.5) x10^3/uL RBC 4.61 (4.1-5.4) x10^6/uL Hgb 14.1 (12.0-16.0) g/dL Hct 43.0 (35-47) % MCV 93.3 (78-100) fL MCH 30.6 (26-32) pg MCHC 32.8 (32-36) g/dL RDW 12.3 (11.5-14.0) % Plt Count 314 (150-450) x10^3/uL MPV 9.2 (7.5-11.0) fL Gran % 57.4 (36.0-66.0) % Immature Gran % (Auto) 0.5 H (0.00-0.4) % Nucleat RBC Rel Count 0.0 (0.00-0.1) % Eos # (Auto) 0.19 (0-0.5) x10^3/uL Immature Gran # (Auto) 0.06 H (0.00-0.03) x10^3u/L Absolute Lymphs (auto) 4.29 (1.0-4.6) x10^3/uL Absolute Monos (auto) 0.72 (0.0-1.3) x10^3/uL Absolute Nucleated RBC 0.00 (0.00-0.01) x10^3u/L Lymphocytes % 34.4 (24.0-44.0) % Monocytes % 5.8 (0.0-12.0) % Eosinophils % 1.5 (0.00-5.0) % Basophils % 0.4 (0.0-0.4) % Absolute Granulocytes 7.16 H (1.4-6.9) x10^3/uL Basophils # 0.05 (0-0.4) x10^3/uL PT (9.4-12.5) SECONDS INR (0.8-3.0) D-Dimer (0.0-0.50) mg/L Sodium 142 (137-145) mmol/L Potassium 3.8 (3.5-5.1) mmol/L Chloride 106 (98-107) mmol/L Carbon Dioxide 28 (22-30) mmol/L Anion Gap 11.9 (5-15) MEQ/L BUN 12 (7-17) mg/dL Creatinine 0.50 L (0.52-1.04) mg/dL Estimated GFR 106.0 ML/MIN Glucose 215 H (74-106) mg/dL POC Glucometer (74 to 106) mg/dL Hemoglobin A1c (4.5-6.0) % Calcium 9.9 (8.4-10.2) mg/dL Phosphorus (2.5-4.5) mg/dL Magnesium (1.6-2.3) mg/dL Total Bilirubin 0.50 (0.2-1.3) mg/dL AST 18 (14-36) U/L ALT 14 (0-35) U/L Alkaline Phosphatase 97 (38-126) U/L Creatine Kinase 29 L (30-135) U/L Troponin I < 0.012 (0.000-0.034) ng/mL NT-Pro-B Natriuret Pep 104 (<300) pg/mL Serum Total Protein 7.4 (6.3-8.2) g/dL Albumin 4.2 (3.5-5.0) g/dL TSH 3rd Generation (0.47-4.68) mIU/L Urine Color (Yellow) Urine Appearance (Clear) Urine pH (4.6-8.0) Ur Specific [place] (1.005-1.030) Urine Protein (Negative) Urine Glucose (UA) (Negative) mg/dL Urine Ketones (Negative) Urine Blood (Negative) Urine Nitrite (Negative) Urine Bilirubin (Negative) Urine Urobilinogen (0.2) mg/dL Ur Leukocyte Esterase (Negative) U Hyaline Cast (Auto) (0-2) /LPF Urine Microscopic RBC (0-5) /HPF Urine Microscopic WBC (0-5) /HPF Ur Epithelial Cells (None Seen) /HPF Urine Bacteria (None Seen) /HPF Urine Culture Reflexed (NO) Urine Opiates Level (NEGATIVE) Ur Methadone (NEGATIVE) Urine Barbiturates (NEGATIVE) Ur Phencyclidine (PCP) (NEGATIVE) Urine Amphetamine (NEGATIVE) U Benzodiazepine Level (NEGATIVE) Urine Cocaine (NEGATIVE) Urine Marijuana (THC) (NEGATIVE) Influenza Type A Ag (NEGATIVE) Influenza Type B Ag (NEGATIVE) RSV (PCR) (NEGATIVE) SARS-CoV-2 (PCR) (NEGATIVE) 03/27/23 03/27/23 03/27/23 Range/Units 16:30 16:53 17:02 WBC (4.0-10.5) x10^3/uL RBC (4.1-5.4) x10^6/uL Hgb (12.0-16.0) g/dL Hct (35-47) % MCV (78-100) fL MCH (26-32) pg MCHC (32-36) g/dL RDW (11.5-14.0) % Plt Count (150-450) x10^3/uL MPV (7.5-11.0) fL Gran % (36.0-66.0) % Immature Gran % (Auto) (0.00-0.4) % Nucleat RBC Rel Count (0.00-0.1) % Eos # (Auto) (0-0.5) x10^3/uL Immature Gran # (Auto) (0.00-0.03) x10^3u/L Absolute Lymphs (auto) (1.0-4.6) x10^3/uL Absolute Monos (auto) (0.0-1.3) x10^3/uL Absolute Nucleated RBC (0.00-0.01) x10^3u/L Lymphocytes % (24.0-44.0) % Monocytes % (0.0-12.0) % Eosinophils % (0.00-5.0) % Basophils % (0.0-0.4) % Absolute Granulocytes (1.4-6.9) x10^3/uL Basophils # (0-0.4) x10^3/uL PT (9.4-12.5) SECONDS INR (0.8-3.0) D-Dimer (0.0-0.50) mg/L Sodium (137-145) mmol/L Potassium (3.5-5.1) mmol/L Chloride (98-107) mmol/L Carbon Dioxide (22-30) mmol/L Anion Gap (5-15) MEQ/L BUN (7-17) mg/dL Creatinine (0.52-1.04) mg/dL Estimated GFR ML/MIN Glucose (74-106) mg/dL POC Glucometer 91 (74 to 106) mg/dL Hemoglobin A1c (4.5-6.0) % Calcium (8.4-10.2) mg/dL Phosphorus (2.5-4.5) mg/dL Magnesium (1.6-2.3) mg/dL Total Bilirubin (0.2-1.3) mg/dL AST (14-36) U/L ALT (0-35) U/L Alkaline Phosphatase (38-126) U/L Creatine Kinase (30-135) U/L Troponin I < 0.012 (0.000-0.034) ng/mL NT-Pro-B Natriuret Pep (<300) pg/mL Serum Total Protein (6.3-8.2) g/dL Albumin (3.5-5.0) g/dL TSH 3rd Generation 2.260 (0.47-4.68) mIU/L Urine Color (Yellow) Urine Appearance (Clear) Urine pH (4.6-8.0) Ur Specific [place] (1.005-1.030) Urine Protein (Negative) Urine Glucose (UA) (Negative) mg/dL Urine Ketones (Negative) Urine Blood (Negative) Urine Nitrite (Negative) Urine Bilirubin (Negative) Urine Urobilinogen (0.2) mg/dL Ur Leukocyte Esterase (Negative) U Hyaline Cast (Auto) (0-2) /LPF Urine Microscopic RBC (0-5) /HPF Urine Microscopic WBC (0-5) /HPF Ur Epithelial Cells (None Seen) /HPF Urine Bacteria (None Seen) /HPF Urine Culture Reflexed (NO) Urine Opiates Level (NEGATIVE) Ur Methadone (NEGATIVE) Urine Barbiturates (NEGATIVE) Ur Phencyclidine (PCP) (NEGATIVE) Urine Amphetamine (NEGATIVE) U Benzodiazepine Level (NEGATIVE) Urine Cocaine (NEGATIVE) Urine Marijuana (THC) (NEGATIVE) Influenza Type A Ag (NEGATIVE) Influenza Type B Ag (NEGATIVE) RSV (PCR) (NEGATIVE) SARS-CoV-2 (PCR) (NEGATIVE) 03/27/23 03/27/23 03/27/23 Range/Units 19:09 19:40 19:40 WBC (4.0-10.5) x10^3/uL RBC (4.1-5.4) x10^6/uL Hgb (12.0-16.0) g/dL Hct (35-47) % MCV (78-100) fL MCH (26-32) pg MCHC (32-36) g/dL RDW (11.5-14.0) % Plt Count (150-450) x10^3/uL MPV (7.5-11.0) fL Gran % (36.0-66.0) % Immature Gran % (Auto) (0.00-0.4) % Nucleat RBC Rel Count (0.00-0.1) % Eos # (Auto) (0-0.5) x10^3/uL Immature Gran # (Auto) (0.00-0.03) x10^3u/L Absolute Lymphs (auto) (1.0-4.6) x10^3/uL Absolute Monos (auto) (0.0-1.3) x10^3/uL Absolute Nucleated RBC (0.00-0.01) x10^3u/L Lymphocytes % (24.0-44.0) % Monocytes % (0.0-12.0) % Eosinophils % (0.00-5.0) % Basophils % (0.0-0.4) % Absolute Granulocytes (1.4-6.9) x10^3/uL Basophils # (0-0.4) x10^3/uL PT (9.4-12.5) SECONDS INR (0.8-3.0) D-Dimer (0.0-0.50) mg/L Sodium (137-145) mmol/L Potassium (3.5-5.1) mmol/L Chloride (98-107) mmol/L Carbon Dioxide (22-30) mmol/L Anion Gap (5-15) MEQ/L BUN (7-17) mg/dL Creatinine (0.52-1.04) mg/dL Estimated GFR ML/MIN Glucose (74-106) mg/dL POC Glucometer (74 to 106) mg/dL Hemoglobin A1c (4.5-6.0) % Calcium (8.4-10.2) mg/dL Phosphorus (2.5-4.5) mg/dL Magnesium (1.6-2.3) mg/dL Total Bilirubin (0.2-1.3) mg/dL AST (14-36) U/L ALT (0-35) U/L Alkaline Phosphatase (38-126) U/L Creatine Kinase (30-135) U/L Troponin I (0.000-0.034) ng/mL NT-Pro-B Natriuret Pep (<300) pg/mL Serum Total Protein (6.3-8.2) g/dL Albumin (3.5-5.0) g/dL TSH 3rd Generation (0.47-4.68) mIU/L Urine Color Yellow (Yellow) Urine Appearance Clear (Clear) Urine pH 6.0 (4.6-8.0) Ur Specific [place] 1.015 (1.005-1.030) Urine Protein Negative (Negative) Urine Glucose (UA) Negative (Negative) mg/dL Urine Ketones Negative (Negative) Urine Blood Negative (Negative) Urine Nitrite Negative (Negative) Urine Bilirubin Negative (Negative) Urine Urobilinogen 0.2 (0.2) mg/dL Ur Leukocyte Esterase Trace A (Negative) U Hyaline Cast (Auto) NONE SEEN (0-2) /LPF Urine Microscopic RBC 0-2 (0-5) /HPF Urine Microscopic WBC 3-5 (0-5) /HPF Ur Epithelial Cells Few (None Seen) /HPF Urine Bacteria Rare A (None Seen) /HPF Urine Culture Reflexed NO (NO) Urine Opiates Level NEGATIVE (NEGATIVE) Ur Methadone NEGATIVE (NEGATIVE) Urine Barbiturates NEGATIVE (NEGATIVE) Ur Phencyclidine (PCP) NEGATIVE (NEGATIVE) Urine Amphetamine NEGATIVE (NEGATIVE) U Benzodiazepine Level NEGATIVE (NEGATIVE) Urine Cocaine NEGATIVE (NEGATIVE) Urine Marijuana (THC) NEGATIVE (NEGATIVE) Influenza Type A Ag NEGATIVE (NEGATIVE) Influenza Type B Ag NEGATIVE (NEGATIVE) RSV (PCR) NEGATIVE (NEGATIVE) SARS-CoV-2 (PCR) NEGATIVE (NEGATIVE) 03/27/23 03/27/23 03/27/23 Range/Units 20:45 20:45 20:45 WBC (4.0-10.5) x10^3/uL RBC (4.1-5.4) x10^6/uL Hgb (12.0-16.0) g/dL Hct (35-47) % MCV (78-100) fL MCH (26-32) pg MCHC (32-36) g/dL RDW (11.5-14.0) % Plt Count (150-450) x10^3/uL MPV (7.5-11.0) fL Gran % (36.0-66.0) % Immature Gran % (Auto) (0.00-0.4) % Nucleat RBC Rel Count (0.00-0.1) % Eos # (Auto) (0-0.5) x10^3/uL Immature Gran # (Auto) (0.00-0.03) x10^3u/L Absolute Lymphs (auto) (1.0-4.6) x10^3/uL Absolute Monos (auto) (0.0-1.3) x10^3/uL Absolute Nucleated RBC (0.00-0.01) x10^3u/L Lymphocytes % (24.0-44.0) % Monocytes % (0.0-12.0) % Eosinophils % (0.00-5.0) % Basophils % (0.0-0.4) % Absolute Granulocytes (1.4-6.9) x10^3/uL Basophils # (0-0.4) x10^3/uL PT (9.4-12.5) SECONDS INR (0.8-3.0) D-Dimer (0.0-0.50) mg/L Sodium (137-145) mmol/L Potassium (3.5-5.1) mmol/L Chloride (98-107) mmol/L Carbon Dioxide (22-30) mmol/L Anion Gap (5-15) MEQ/L BUN (7-17) mg/dL Creatinine (0.52-1.04) mg/dL Estimated GFR ML/MIN Glucose (74-106) mg/dL POC Glucometer (74 to 106) mg/dL Hemoglobin A1c 5.95 (4.5-6.0) % Calcium (8.4-10.2) mg/dL Phosphorus 3.8 (2.5-4.5) mg/dL Magnesium 2.0 (1.6-2.3) mg/dL Total Bilirubin (0.2-1.3) mg/dL AST (14-36) U/L ALT (0-35) U/L Alkaline Phosphatase (38-126) U/L Creatine Kinase (30-135) U/L Troponin I < 0.012 (0.000-0.034) ng/mL NT-Pro-B Natriuret Pep (<300) pg/mL Serum Total Protein (6.3-8.2) g/dL Albumin (3.5-5.0) g/dL TSH 3rd Generation (0.47-4.68) mIU/L Urine Color (Yellow) Urine Appearance (Clear) Urine pH (4.6-8.0) Ur Specific [place] (1.005-1.030) Urine Protein (Negative) Urine Glucose (UA) (Negative) mg/dL Urine Ketones (Negative) Urine Blood (Negative) Urine Nitrite (Negative) Urine Bilirubin (Negative) Urine Urobilinogen (0.2) mg/dL Ur Leukocyte Esterase (Negative) U Hyaline Cast (Auto) (0-2) /LPF Urine Microscopic RBC (0-5) /HPF Urine Microscopic WBC (0-5) /HPF Ur Epithelial Cells (None Seen) /HPF Urine Bacteria (None Seen) /HPF Urine Culture Reflexed (NO) Urine Opiates Level (NEGATIVE) Ur Methadone (NEGATIVE) Urine Barbiturates (NEGATIVE) Ur Phencyclidine (PCP) (NEGATIVE) Urine Amphetamine (NEGATIVE) U Benzodiazepine Level (NEGATIVE) Urine Cocaine (NEGATIVE) Urine Marijuana (THC) (NEGATIVE) Influenza Type A Ag (NEGATIVE) Influenza Type B Ag (NEGATIVE) RSV (PCR) (NEGATIVE) SARS-CoV-2 (PCR) (NEGATIVE) 03/27/23 03/27/23 03/28/23 Range/Units 20:45 21:25 04:19 WBC (4.0-10.5) x10^3/uL RBC (4.1-5.4) x10^6/uL Hgb (12.0-16.0) g/dL Hct (35-47) % MCV (78-100) fL MCH (26-32) pg MCHC (32-36) g/dL RDW (11.5-14.0) % Plt Count (150-450) x10^3/uL MPV (7.5-11.0) fL Gran % (36.0-66.0) % Immature Gran % (Auto) (0.00-0.4) % Nucleat RBC Rel Count (0.00-0.1) % Eos # (Auto) (0-0.5) x10^3/uL Immature Gran # (Auto) (0.00-0.03) x10^3u/L Absolute Lymphs (auto) (1.0-4.6) x10^3/uL Absolute Monos (auto) (0.0-1.3) x10^3/uL Absolute Nucleated RBC (0.00-0.01) x10^3u/L Lymphocytes % (24.0-44.0) % Monocytes % (0.0-12.0) % Eosinophils % (0.00-5.0) % Basophils % (0.0-0.4) % Absolute Granulocytes (1.4-6.9) x10^3/uL Basophils # (0-0.4) x10^3/uL PT 11.9 (9.4-12.5) SECONDS INR 1.10 (0.8-3.0) D-Dimer 0.36 (0.0-0.50) mg/L Sodium (137-145) mmol/L Potassium (3.5-5.1) mmol/L Chloride (98-107) mmol/L Carbon Dioxide (22-30) mmol/L Anion Gap (5-15) MEQ/L BUN (7-17) mg/dL Creatinine (0.52-1.04) mg/dL Estimated GFR ML/MIN Glucose (74-106) mg/dL POC Glucometer 128 H 127 H (74 to 106) mg/dL Hemoglobin A1c (4.5-6.0) % Calcium (8.4-10.2) mg/dL Phosphorus (2.5-4.5) mg/dL Magnesium (1.6-2.3) mg/dL Total Bilirubin (0.2-1.3) mg/dL AST (14-36) U/L ALT (0-35) U/L Alkaline Phosphatase (38-126) U/L Creatine Kinase (30-135) U/L Troponin I (0.000-0.034) ng/mL NT-Pro-B Natriuret Pep (<300) pg/mL Serum Total Protein (6.3-8.2) g/dL Albumin (3.5-5.0) g/dL TSH 3rd Generation (0.47-4.68) mIU/L Urine Color (Yellow) Urine Appearance (Clear) Urine pH (4.6-8.0) Ur Specific [place] (1.005-1.030) Urine Protein (Negative) Urine Glucose (UA) (Negative) mg/dL Urine Ketones (Negative) Urine Blood (Negative) Urine Nitrite (Negative) Urine Bilirubin (Negative) Urine Urobilinogen (0.2) mg/dL Ur Leukocyte Esterase (Negative) U Hyaline Cast (Auto) (0-2) /LPF Urine Microscopic RBC (0-5) /HPF Urine Microscopic WBC (0-5) /HPF Ur Epithelial Cells (None Seen) /HPF Urine Bacteria (None Seen) /HPF Urine Culture Reflexed (NO) Urine Opiates Level (NEGATIVE) Ur Methadone (NEGATIVE) Urine Barbiturates (NEGATIVE) Ur Phencyclidine (PCP) (NEGATIVE) Urine Amphetamine (NEGATIVE) U Benzodiazepine Level (NEGATIVE) Urine Cocaine (NEGATIVE) Urine Marijuana (THC) (NEGATIVE) Influenza Type A Ag (NEGATIVE) Influenza Type B Ag (NEGATIVE) RSV (PCR) (NEGATIVE) SARS-CoV-2 (PCR) (NEGATIVE) - Radiology Exams Ordered Rad Exams-Entire Visit: Radiology Procedures Category Date Time Status CHEST 1 VIEW (PORTABLE) Stat Exams 03/27/23 13:25 Completed ECHO W/2D AND DOPPLER [US] Routine Exams 03/27/23 17:57 Ordered - Procedures and Test Procedures and Tests throughout Hospitalization: Therapy Orders & Screens 03/27/23 17:52 Respiratory Therapy Consult ONCE Comment: Reason For Exam: 03/27/23 21:20 Respiratory Therapy Assessment DAILY Comment: Diagnosis: Chest Pain 03/28/23 08:00 EKG REPEAT IN AM Comment: Diagnosis: Chest Pain Discharge Exam General Appearance: no apparent distress Neurologic Exam: alert, oriented x 3, cooperative Eye Exam: PERRL Ears, Nose, Throat Exam: normal ENT inspection Neck Exam: normal inspection Respiratory Exam: normal breath sounds, lungs clear Cardiovascular Exam: regular rate/rhythm, normal heart sounds Gastrointestinal/Abdomen Exam: soft, normal bowel sounds Pelvic Exam: deferred Rectal Exam: deferred Back Exam: normal inspection Extremity Exam: normal inspection Skin Exam: normal color Final Diagnosis/Problem List - Final Discharge Diagnosis/Problem (1) Chest pain, rule out acute myocardial infarction Current Visit: Yes Status: Acute Code(s): R07.9 - CHEST PAIN, UNSPECIFIED (2) Leukocytosis Current Visit: Yes Status: Acute Code(s): D72.829 - ELEVATED WHITE BLOOD CELL COUNT, UNSPECIFIED (3) Hypertension Current Visit: Yes Status: Acute Code(s): I10 - ESSENTIAL (PRIMARY) HYPERTEN JOSÉ (4) Diabetes mellitus Current Visit: Yes Status: Acute Code(s): E11.9 - TYPE 2 DIABETES MELLITUS WITHOUT COMPLICATIONS (5) COPD (chronic obstructive pulmonary disease) Current Visit: Yes Status: Acute - Discharge Disposition: Home, Self-Care Condition: Stable Prescriptions: New PANTOPRAZOLE 40 mg Tablet [Protonix 40MG Tablet] 40 mg PO QAM 30 Days #30 tab Continue Semaglutide [Ozempic] 0.25 mg SQ WEEKLY Clopidogrel Bisulfate [Plavix] 75 mg PO DAILY Aspirin [Vazalore] 81 mg PO DAILY Metformin HCl 500 mg [Glucophage 500 MG] 500 mg PO DAILY Tramadol HCl 50 mg [Ultram 50 mg] 50 mg PO Q8HPRN PRN 3 Days #9 tablet PRN Reason: Pain Nitroglycerin 0.4 mg (Ed) [Nitrostat 0.4 MG (ED)] 0.4 mg PO UD Metoprolol Succinate 25 mg Xl* [Toprol-Xl 25MG Tablets] 25 mg PO DAILY Evolocumab [Repatha Syringe] 1 ml SQ UD Follow up with: REX CAR NP [Primary Care Provider] - RUSLAN ABURTO [CONSULTING PHYSICIAN] - (as scheduled)
[2023-03-28 05:49] LABS: Absolute Neutrophil Ct (ANC) 6.16 x10^3/uL (1.4-6.9); BASOPHIL % 0.5 % (0.0-0.4); Basophil (Absolute #) 0.05 x10^3/uL (0-0.4); Eosinophil % 1.7 % (0.00-5.0); Eosinophil (Absolute #) 0.18 x10^3/uL (0-0.5); Hematocrit 41.4 % (35-47); Hemoglobin 13.6 g/dL (12.0-16.0); IMMATURE GRAN # 0.05 x10^3u/L (0.00-0.03); IMMATURE GRAN % 0.5 % (0.00-0.4); Lymphocyte (Absolute #) 3.46 x10^3/uL (1.0-4.6); Lymphocytes % 32.5 % (24.0-44.0); Mean Cell Volume 93.2 fL (78-100); Mean Corpuscular Hemoglobin 30.6 pg (26-32); Mean Corpuscular Hgb Concent. 32.9 g/dL (32-36); Mean Platelet Volume 9.3 fL (7.5-11.0); Monocyte (Absolute #) 0.73 x10^3/uL (0.0-1.3); Monocytes % 6.9 % (0.0-12.0); Neutrophil % 57.9 % (36.0-66.0); Platelet Count 302 x10^3/uL (150-450); Red Blood Count 4.44 x10^6/uL (4.1-5.4); Red Cell Distribution Width 12.4 % (11.5-14.0); White Blood Count 10.6 x10^3/uL (4.0-10.5)
[2023-03-28 06:37] LABS: ALBUMIN 3.8 g/dL (3.5-5.0); ANION GAP 11.3 MEQ/L (5-15); BILIRUBIN,TOTAL 0.6 mg/dL (0.2-1.3); Calcium 9.5 mg/dL (8.4-10.2); Creatinine 1 0.57 mg/dL (0.52-1.04); EST GLOMERULAR FILTRATION RATE 102.7 ML/MIN; MAGNESIUM 1.9 mg/dL (1.6-2.3); Potassium 3.9 mmol/L (3.5-5.1); Risk Ratio 3.8; Total Protein 6.8 g/dL (6.3-8.2)
[2023-03-28 07:26] VITALS: BP 89/60; RESP 16; TEMP 98; O2SAT 96
[2023-03-28] MEDS ORDERED: MEDICATION INTERVENTION MC SCH (09:00)
[2023-03-28] MEDS ORDERED: ASPIRIN 81 MG PO SCH (10:00)
[2023-03-28] MEDS ORDERED: ENOXAPARIN SODIUM SQ SCH (10:00)
[2023-03-28] MEDS ORDERED: Toprol-Xl 25MG Tablets PO SCH (10:00)
[2023-03-28] MEDS ORDERED: ECOTRIN 81 MG PO SCH (10:00)
[2023-03-28] MEDS ORDERED: PLAVIX Tablet PO SCH (10:00)
[2023-03-28 10:18] VITALS: PULSE 70
[2023-03-28] MEDS: Lopressor 50 MG PO SCH ×2 (10:34→10:40)
[2023-03-28] MEDS ORDERED: PROTONIX 40 MG IV IV SCH (22:00)
== END 2023-03-28 11:07 | disposition home or self-care (01) ==
LOC: ED 13:14 → MED SURG 17:43
PROVIDERS: ADMIT Internal Medicine; ATTEND Internal Medicine
DX: R07.9 Chest pain, unspecified (principal); D72.829 Elevated white blood cell count, unspecified; I10 Essential (primary) hypertension; J44.9 Chronic obstructive pulmonary disease, unspecified; E78.5 Hyperlipidemia, unspecified; E11.9 Type 2 diabetes mellitus without complications; F17.200 Nicotine dependence, unspecified, uncomplicated; Z79.899 Other long term (current) drug therapy; Z20.828 Contact with and (suspected) exposure to other viral communicable diseases; Z79.01 Long term (current) use of anticoagulants
CPT/HCPCS: 0241U; 36000; 36415; 71045; 80053; 80061; 80307; 81001; 82550; 82947; 83036; 83721; 83735; 83880; 84100; 84443; 84484; 85025; 85379; 85610; 93005; 93041; 93268; 94760; 99284; G0378; Q3014; A9270-GY

== ENCOUNTER 2023-04-20 06:07 | Day surgery (SDC) | payer OTHER ==
[2023-04-20] MEDS ORDERED: Lactated Ringers 1,000 ML IV SCH (06:30)
[2023-04-20 06:36] VITALS: RESP 18
[2023-04-20] MEDS ORDERED: DIPRIVAN 200 MG/20 ML IV ONE (07:59)
[2023-04-20] MEDS ORDERED: Xylocaine-Mpf 2% 5 Ml Vial ONE (07:59)
[2023-04-20] MEDS ORDERED: Versed 2 MG/2 ML Injection ONE (08:00)
--- NOTE | 2023-04-20 08:50 | OP ---
SURGERY DATE/TIME: 04/20/2023 0808 PREOPERATIVE DIAGNOSIS: Epigastric and chest pain radiating to the back. POSTOPERATIVE DIAGNOSIS: Mild gastritis. PROCEDURE: Esophagogastroduodenoscopy with cold forceps biopsy of the gastric antrum to rule out Helicobacter pylori. SURGEON: Dr. Yao. ANESTHESIA: Medications were given by the anesthesia department. BRIEF HISTORY: The patient is a 62-year-old white female who has been presenting belly pain since approximately two months ago around time. The patient is noted to be on Ozempic but she reports that she has been on it for about a year at the lowest dose. It is also noted that the patient in on aspirin and Plavix for a stent in her leg. Apparently the patient had a heart cath recently which did not reveal any lesions that needed stenting. The patient now presents for endoscopic evaluation. The patient was appraised of the risks of the procedure including the risk of perforation, phlebitis, untoward reaction to medication, bleeding and missed lesions. The patient verbalized her understanding and desired to have the procedure performed. DESCRIPTION OF PROCEDURE: The patient was given the medications by the anesthesia department. She had continuous pulse oximetry, ECG monitoring and intermittent blood pressure monitoring during the examination. She was placed in the left lateral decubitus position. A bite block was placed and the flexible Olympus gastroscope was used to intubate the oropharynx. A view of the larynx was obtained and was normal. The scope was easily introduced in the esophagus which appeared to be normal throughout its length. The stomach was entered where normal gastric rugal folds were seen and these distended nicely with insufflation of air. The scope was passed along the greater curvature of the stomach to the antrum. The pylorus was encountered and intubated. The duodenum inspected and found to be normal. The scope is withdrawn towards the stomach. Again, a retroflex view was obtained of the lesser curvature, fundus and cardia regions of the stomach and these appeared to be essentially normal. The scope was then redirected towards the gastric antrum and biopsies were obtained to rule out the presence of Helicobacter pylori-type organisms. The scope was then removed from the patient who tolerated the procedure well and was sent back to outpatient recovery in good condition.
[2023-04-20 08:51] VITALS: O2SAT 93
[2023-04-20 09:11] VITALS: BP 133/86; PULSE 86; TEMP 97
== END 2023-04-20 09:20 | disposition home or self-care (01) ==
LOC: SDC 06:07
PROVIDERS: ATTEND Family Medicine
DX: K29.70 Gastritis, unspecified, without bleeding (principal); R10.13 Epigastric pain; R07.9 Chest pain, unspecified
CPT/HCPCS: J2250; J2704

== ENCOUNTER 2023-10-11 06:20 | Day surgery (SDC) | payer OTHER ==
[2023-10-11 06:48] VITALS: RESP 18
[2023-10-11] MEDS ORDERED: Lactated Ringers 1,000 ML IV ONE (06:57)
[2023-10-11] MEDS: Lactated Ringers 1,000 ML IV SCH (06:58)
[2023-10-11] MEDS ORDERED: DIPRIVAN 200 MG/20 ML IV ONE ×2 (08:35→08:38)
[2023-10-11 09:38] VITALS: BP 126/86; PULSE 81; TEMP 97.7; O2SAT 97
--- NOTE | 2023-10-12 10:04 | OP ---
SURGERY DATE/TIME: 10/11/2023 5488 - 6148 PREOPERATIVE DIAGNOSIS: Screening exam. POSTOPERATIVE DIAGNOSIS: Sigmoid diverticulosis. Otherwise, normal colonoscopy. PROCEDURE: Colonoscopy. SURGEON: Maikel Yao MD ANESTHESIA: Medication given by the Anesthesia Department. HISTORY: The patient is a 63-year-old white female presenting now for screening colonoscopy. She was apprised of the risks of the procedure including the risk of perforation, phlebitis, untoward reaction to medication, bleeding and missed lesions. The patient verbalized her understanding and desired to have the procedure performed. DESCRIPTION OF PROCEDURE AND FINDINGS: Patient was given medication by the anesthesia department. She had continuous pulse oximetry, ECG monitoring, and intermittent blood pressure monitoring during the examination. She was placed in the left lateral decubitus position. Digital rectal examination was performed and revealed normal anal sphincter tone and no masses. The flexible Olympus pediatric colonoscope was used to intubate the rectum. A view of the colon was developed sequentially to the cecum. Upon insertion and withdrawal, including retroflexion in the rectum, there was evidence of moderate sigmoid diverticulosis. Otherwise, no mucosal lesions were encountered. The scope was removed. The patient tolerated the procedure well and was sent to outpatient recovery in good condition. The prep was noted to be fair.
== END 2023-10-11 09:43 | disposition home or self-care (01) ==
LOC: SDC 06:20 → EDSTATUS 11:29
PROVIDERS: ATTEND Family Medicine
DX: Z12.11 Encounter for screening for malignant neoplasm of colon (principal); K57.90 Diverticulosis of intestine, part unspecified, without perforation or abscess without bleeding; E11.9 Type 2 diabetes mellitus without complications
CPT/HCPCS: 82947; 93005; J2704

== ENCOUNTER 2024-05-25 07:23 | Day surgery (SDC) | payer OTHER ==
[2024-05-25] MEDS ORDERED: Sodium Chloride 0.9(Preservative Free) 10 ML IJ ONE (07:24)
[2024-05-25] MEDS ORDERED: Depo-Medrol 40 MG/ML IM ONE (07:24)
[2024-05-25] MEDS ORDERED: LIDOCAINE HCL 1% AMPUL 5 ML IJ ONE (07:24)
[2024-05-25] MEDS ORDERED: propofoL IV ONE (08:47)
--- NOTE | 2024-05-25 10:42 | XRAY ---
Indication: Lumbar KAYLA. Intraoperative fluoroscopy provided for 16 seconds. 2 digital spot image submitted for interpretation demonstrates posterior needle tip projecting posterior to lumbosacral junction interspace. Small amount of contrast injected for needle tip placement. Correlate with intraoperative findings/report.
--- NOTE | 2024-05-25 13:12 | XRAY ---
16 seconds of fluoroscopy was used in surgery for a lumbar KAYLA.
== END 2024-05-25 09:25 | disposition home or self-care (01) ==
LOC: SDC-PAIN 07:23
PROVIDERS: ATTEND Psychiatry & Neurology Pain Medicine
DX: M54.16 Radiculopathy, lumbar region (principal); E11.9 Type 2 diabetes mellitus without complications
CPT/HCPCS: 62323; 72100; 77003; 82947; J2704; Q9966

== ENCOUNTER 2024-12-27 07:28 | Day surgery (SDC) | payer OTHER ==
[2024-12-27] MEDS ORDERED: LIDOCAINE HCL 2% 100 MG/5 ML IJ ONE (07:29)
[2024-12-27] MEDS ORDERED: methylPREDNISolone acetate IM ONE (07:29)
[2024-12-27] MEDS ORDERED: propofoL IV ONE (09:03)
[2024-12-27] MEDS ORDERED: Lactated Ringers 1,000 ML IV ONE (09:50)
--- NOTE | 2024-12-27 19:06 | XRAY ---
Indication: Bilateral L4-S1 MBB. Intraoperative fluoroscopy provided for 8 seconds. Single digital spot image submitted for interpretation demonstrates posterior needle tips projecting over expected left and right L4-S1 nerve roots. Correlate with intraoperative findings/report.
--- NOTE | 2024-12-27 19:37 | XRAY ---
8 seconds of fluoroscopy was used in surgery for a bilateral L4-S1 MBB.
== END 2024-12-27 09:32 | disposition home or self-care (01) ==
LOC: SDC-PAIN 07:28
PROVIDERS: ATTEND Psychiatry & Neurology Pain Medicine
DX: M47.817 Spondylosis without myelopathy or radiculopathy, lumbosacral region (principal); E11.9 Type 2 diabetes mellitus without complications

== ENCOUNTER 2025-02-21 07:28 | Day surgery (SDC) | payer OTHER ==
[2025-02-21] MEDS ORDERED: methylPREDNISolone acetate IM ONE (07:29)
[2025-02-21] MEDS ORDERED: LIDOCAINE HCL 1% 50 MG/5 ML VL IJ ONE (07:29)
[2025-02-21] MEDS ORDERED: BUPIVACAINE 0.5% VIAL IJ ONE (07:29)
[2025-02-21] MEDS ORDERED: propofoL IV ONE (09:02)
--- NOTE | 2025-02-21 10:26 | XRAY ---
Indication: Right L4-S1 RFA. Intraoperative fluoroscopy provided for 16 seconds. 4 digital spot images submitted for interpretation demonstrates posterior needle tips projecting over expected right L4-S1 nerve roots. Correlate with intraoperative findings/report.
[2025-02-21] MEDS ORDERED: Lactated Ringers 1,000 ML IV ONE (11:25)
--- NOTE | 2025-02-21 12:00 | XRAY ---
16 seconds of fluoroscopy was used in surgery for a right L4-S1 RFA.
== END 2025-02-21 09:35 | disposition home or self-care (01) ==
LOC: SDC-PAIN 07:28
PROVIDERS: ATTEND Psychiatry & Neurology Pain Medicine
DX: M47.817 Spondylosis without myelopathy or radiculopathy, lumbosacral region (principal); E11.9 Type 2 diabetes mellitus without complications